=== PATIENT | male | born 1945 | race Caucasian/White ===

== ENCOUNTER 2021-10-05 14:52 | Emergency (ER) | payer MEDICARE, OTHER ==
[2021-10-05] MEDS ORDERED: Lidocaine 1% (PF) 30 ML VIAL ONE (16:30)
[2021-10-05] MEDS ORDERED: Ketorolac Tromethamine 30 MG/ML VIAL ONE (16:39)
== END 2021-10-05 17:48 | disposition home or self-care (01) ==
LOC: CSHERS 14:52
DX: K04.7 Periapical abscess without sinus (principal); F17.210 Nicotine dependence, cigarettes, uncomplicated
CPT/HCPCS: 96372; 99283; J1885; J2001

== ENCOUNTER 2021-10-25 14:09 | Emergency (ER) | payer MEDICARE, OTHER ==
[2021-10-25] MEDS ORDERED: Ketorolac Tromethamine 30 MG/ML VIAL ONE (16:07)
== END 2021-10-25 17:58 | disposition home or self-care (01) ==
LOC: CSHERS 14:09
DX: U07.1 COVID-19 (principal); I10 Essential (primary) hypertension; F17.210 Nicotine dependence, cigarettes, uncomplicated; Z79.82 Long term (current) use of aspirin; Z79.899 Other long term (current) drug therapy
CPT/HCPCS: 71045; 96374; J1885

== ENCOUNTER 2021-11-02 14:53 | Emergency (ER) | payer MEDICARE, OTHER ==
[2021-11-02 15:55] LABS: ALT (SGPT) 22 U/L (8-55); AST (SGOT) 28 U/L (5-34); Alkaline Phosphatase 120 U/L (40-110); Anion Gap 14 mmol/L (10-20); BUN (Urea Nitrogen) 23 mg/dL (8.4-25.7); Calc. Creatinine Clearance 0 mL/min (70-130); Calcium 8.6 mg/dL (7.8-10.44); Carbon Dioxide 25 mmol/L (23-31); Chloride 105 mmol/L (98-107); Estimated GFR 86; Globulin 2.1 g/dL (2.4-3.5); Glucose 116 mg/dL (83-110); Protein, Total 6.1 g/dL (5.8-8.1); Sodium 141 mmol/L (136-145)
[2021-11-02 15:58] LABS: #Monocytes 0.3 10x3/uL (0.0-1.1); #Neutrophils 2.8 10x3/uL (1.5-8.4); %Monocytes 7.9 % (0.0-10.0); %Neutrophils 81.8 % (40.0-75.0); Hemoglobin 12.3 g/dL (13.5-17.5); Mean Corpuscular HGB CONC 33.6 g/dL (32.0-36.0); Mean Corpuscular Hemoglobin 29.3 pg (27.0-33.0); Mean Corpuscular Volume 87.1 fl (81.2-95.1); Mean Platelet Volume 10.4 fl (7.4-10.4); Platelet Count 82 10x3/uL (150-450); RBC Distribution Width 13.1 % (11.5-14.5); White Blood Cell (WBC) Count 3.4 10x3/uL (3.5-10.5)
[2021-11-02] MEDS ORDERED: Ventolin HFA Inhaler 60 PUFF INHALER ONE (16:10)
[2021-11-02 16:28] LABS: Platelet Morphology Comment Appears Decreased; RBC Morphology Normal
[2021-11-02] MEDS ORDERED: Potassium Chloride 20 MEQ TAB ONE (16:44)
[2021-11-02] MEDS ORDERED: HYDROcodone/Acetaminophen 10/325 mg Tablet ONE (17:45)
== END 2021-11-02 18:03 | disposition left against medical advice (07) ==
LOC: CSHERS 14:53
DX: J93.83 Other pneumothorax (principal); I10 Essential (primary) hypertension; F17.210 Nicotine dependence, cigarettes, uncomplicated
CPT/HCPCS: 36415; 71045; 80053; 83605; 83735; 84484; 85025; 93005; 94664; 94760

== ENCOUNTER 2022-02-05 14:40 | Emergency (ER) | payer MEDICARE, OTHER ==
[2022-02-05] MEDS ORDERED: Boostrix 0.5 ML (Tdap) VIAL (>/=7 yrs of age) ONE (15:55)
== END 2022-02-05 16:05 | disposition home or self-care (01) ==
LOC: CSHERS 14:40
DX: L03.011 Cellulitis of right finger (principal); F17.210 Nicotine dependence, cigarettes, uncomplicated; Z23 Encounter for immunization
CPT/HCPCS: 10060; 90471; 90715

== ENCOUNTER 2022-10-27 11:25 | Emergency (ER) | payer MEDICARE, OTHER ==
[2022-10-27] MEDS ORDERED: Ketorolac Tromethamine 30 MG/ML VIAL ONE (14:20)
== END 2022-10-27 14:39 | disposition home or self-care (01) ==
LOC: CSHERS 11:25
DX: G89.29 Other chronic pain (principal)
CPT/HCPCS: 96372; 99283; J1885

== ENCOUNTER 2023-02-09 17:07 | Emergency (ER) | payer MEDICARE, OTHER ==
[2023-02-09 18:26] LABS: ALT (SGPT) 12 U/L (8-55); AST (SGOT) 15 U/L (5-34); Albumin 3.7 g/dL (3.4-4.8); Alkaline Phosphatase 96 U/L (40-110); Anion Gap 14 mmol/L (10-20); BUN (Urea Nitrogen) 12 mg/dL (8.4-25.7); Bilirubin, Total 1.1 mg/dL (0.2-1.2); Calc. Creatinine Clearance 0 mL/min (70-130); Calcium 8.3 mg/dL (7.8-10.44); Carbon Dioxide 23 mmol/L (23-31); Chloride 104 mmol/L (98-107); Estimated GFR 72; Globulin 1.8 g/dL (2.4-3.5); Glucose 108 mg/dL (83-110); Potassium 3.6 mmol/L (3.5-5.1); Protein, Total 5.5 g/dL (5.8-8.1); Sodium 137 mmol/L (136-145)
[2023-02-09 18:29] LABS: Troponin I Less than 0.010 ng/mL (< 0.028)
[2023-02-09 18:32] LABS: #Eosinphils 0.1 10x3/uL (0.0-0.5); #Monocytes 0.5 10x3/uL (0.0-1.1); #Neutrophils 3.5 10x3/uL (1.5-8.4); %Basophils 0.4 % (0.0-2.0); %Eosinophils 1.9 % (0.0-6.0); %Lymphocytes 11.1 % (18.0-47.0); %Monocytes 10.1 % (0.0-10.0); %Neutrophils 75.9 % (40.0-75.0); Hematocrit 38.1 % (38.8-50.0); Hemoglobin 12.7 g/dL (13.5-17.5); Mean Corpuscular HGB CONC 33.3 g/dL (32.0-36.0); Mean Platelet Volume 9.8 fl (7.4-10.4); Platelet Count 122 10x3/uL (150-450); RBC Distribution Width 13.6 % (11.5-14.5); Red Blood Cell (RBC) Count 4.38 10x6/uL (4.32-5.72); White Blood Cell (WBC) Count 4.7 10x3/uL (3.5-10.5)
== END 2023-02-09 20:04 | disposition home or self-care (01) ==
LOC: CSHERS 17:07
DX: M54.2 Cervicalgia (principal); G89.29 Other chronic pain; R25.2 Cramp and spasm; E78.5 Hyperlipidemia, unspecified; F17.210 Nicotine dependence, cigarettes, uncomplicated
CPT/HCPCS: 36415; 80053; 84484; 85025; 93005

== ENCOUNTER 2023-02-15 10:18 | Outpatient (CLI) | payer MEDICARE | END 2023-02-15 10:19 | disposition home or self-care (01) | LOC: CSHCT 10:18 | PROVIDERS: ATTEND Family Medicine | DX: R51.9 Headache, unspecified (principal); M54.6 Pain in thoracic spine; M25.511 Pain in right shoulder; M54.50 Low back pain, unspecified; M79.631 Pain in right forearm; M54.2 Cervicalgia; M47.814 Spondylosis without myelopathy or radiculopathy, thoracic region; M47.812 Spondylosis without myelopathy or radiculopathy, cervical region; M47.816 Spondylosis without myelopathy or radiculopathy, lumbar region | CPT/HCPCS: 70450; 72040; 72070; 72100 ==

== ENCOUNTER 2023-09-30 17:19 | Emergency (ER) | payer MEDICARE ==
[2023-09-30 18:21] LABS: #Basophils 0.01 10x3/uL (0.0-0.2); #Eosinphils 0.09 10x3/uL (0.0-0.5); #Monocytes 0.93 10x3/uL (0.0-1.1); #Neutrophils 10.02 10x3/uL (1.5-8.4); %Basophils 0.1 % (0.0-2.0); %Eosinophils 0.8 % (0.0-6.0); %Lymphocytes 5.4 % (18.0-47.0); %Monocytes 7.9 % (0.0-10.0); Hemoglobin 11.9 g/dL (13.5-17.5); Mean Corpuscular HGB CONC 33.1 g/dL (32.0-36.0); Mean Corpuscular Hemoglobin 27.6 pg (27.0-33.0); Mean Corpuscular Volume 83.5 fL (81.2-95.1); Mean Platelet Volume 10.3 fL (7.4-10.4); Platelet Count 199 10x3/uL (150-450); RBC Distribution Width 14.2 % (11.5-14.5); Red Blood Cell (RBC) Count 4.31 10x6/uL (4.32-5.72); White Blood Cell (WBC) Count 11.8 10x3/uL (3.5-10.5)
[2023-09-30 18:27] LABS: INR-International Normal Ratio 1.1; PTT 26.6 sec (22.0-33.0); Prothrombin Time 11.9 sec (9.5-12.1)
[2023-09-30 18:28] LABS: ALT (SGPT) 11 U/L (8-55); AST (SGOT) 12 U/L (5-34); Albumin 3.3 g/dL (3.4-4.8); Alkaline Phosphatase 120 U/L (40-110); Anion Gap 11 mmol/L (10-20); BUN (Urea Nitrogen) 18 mg/dL (8.4-25.7); Bilirubin, Total 0.7 mg/dL (0.2-1.2); CK (CPK) 56 U/L (30-200); Calc. Creatinine Clearance 0 mL/min (70-130); Calcium 8.5 mg/dL (7.8-10.44); Carbon Dioxide 25 mmol/L (23-31); Chloride 100 mmol/L (98-107); Estimated GFR 78; Globulin 2.2 g/dL (2.4-3.5); Glucose 109 mg/dL (83-110); Potassium 3.4 mmol/L (3.5-5.1); Protein, Total 5.5 g/dL (5.8-8.1); Sodium 133 mmol/L (136-145)
[2023-09-30 18:34] LABS: Troponin I Less than 0.010 ng/mL (< 0.028)
== END 2023-09-30 19:37 | disposition home or self-care (01) ==
LOC: CSHERS 17:19
DX: S09.90XA Unspecified injury of head, initial encounter (principal); R60.0 Localized edema; F17.210 Nicotine dependence, cigarettes, uncomplicated; W18.30XA Fall on same level, unspecified, initial encounter
CPT/HCPCS: 70450; 71045; 72125; 80053; 82550; 83880; 84484; 85025; 85610; 85730; 93005